=== PATIENT | female | born 1930 | race African-American/Black ===

== ENCOUNTER 2018-01-04 10:53 | Inpatient (IN) | payer MEDICARE, MEDICAID ==
[~2018-01-04] VITALS: Ht 157.5 cm; Wt 45.5 kg
[~2018-01-04 10:53] MED LIST: ARICEPT PO; ASPIRIN EC81 MG PO; BL ADULT ASA81 MG PO; CEPHALEXIN500 M1 PO; CIPROFLOXACN250 MG PO; FLUCONAZOLE100 MG PO; LOVASTATIN10 M1 PO; MEDDOSEPAK PO; MEGESTROL AC20 MG PO; NITRO-DUR0.4 MG/HR TD; NYSTATIN100000 M1 PO; PROTONIX40 MG PO; SERTRALINE25 MG PO; TRAMADOL HCL50 MG PO
--- NOTE | 2018-01-04 11:08 | NUR ---
PT ARRIVED TO ER ROOM 10
--- NOTE | 2018-01-04 11:30 | NUR ---
PT RESTING COMFORTABLY IN STRETCHER, RIGHT LEG IS BENT AT THE KNEE FOR PT COMFORT AND PT UNABLE TO STRAIGHTEN LEG WITHOUT PAIN. PT HAS A HX OF DEMENTIA AND IS UNABLE TO COMMUNICATE PAIN LEVEL AT THIS TIME. PEDAL PULSE STONG IN RIGHT EXTREMITY. PAITENT ALERT TO PERSON AT THIS TIME. UNABLE TO RECONCILE MEDICATIONS DUE TO PT STATUS. CALL MERRITT WITHIN REACH, WILL CONTINUE TO MONITOR.
--- NOTE | 2018-01-04 12:30 | NUR ---
PT REQUESTING PAIN MEDICATION. MD NOTIFIED, AWAITING NEW ORDERS.
--- NOTE | 2018-01-04 13:30 | NUR ---
IV ACCESS OBTAINED. PT GRANDDAUGHTER AT BEDSIDE AND UPDATED ON STATUS AND PLAN OF CARE. WILL CONTINUE TO MONITOR.
--- NOTE | 2018-01-04 14:00 | NUR ---
PT RESTING COMFORTABLY IN STRETCHER, FAMILY AT BEDSIDE. FAMILY UPDATED ON PLAN OF CARE AND WAIT TIME. CALL MERRITT WITHIN REACH, WILL CONTINUE TO MONITOR.
--- NOTE | 2018-01-04 14:45 | NUR ---
MD AT BEDSIDE TO DISCUSS RESUTLS AND PLAN OF CARE.
--- NOTE | 2018-01-04 15:02 | NUR ---
SBAR PRINTED TO FLOOR
--- NOTE | 2018-01-04 15:31 | NUR ---
REPORT CALLED TO DANNY HERRERA.
--- NOTE | 2018-01-04 15:40 | NUR ---
Admission Note Report Given to: DANNY HERRERA Transported by: Wheelchair X Stretcher Transported with: X Nurse Transporter X Patent IV O2 Potable Water Treatment Operator
[2018-01-04 15:56] VITALS: BP 110/69
[2018-01-04 16:13] LABS: HEMATOCRIT 32.8 % (37.0-47.0); IMMATURE GRANULOCYTES 0.6 % (0.0-1.0); MEAN CORPUSCULAR HGB 29.6 pG CALC (26.0-32.0); MEAN CORPUSCULAR HGB CONC 30.5 g/L CALC (32.0-36.0); NEUT# 9.79 thou/uL (2.00-7.15); RED BLOOD COUNT 3.38 mill/uL (4.20-5.60); RED CELL DISTRI WIDTH 14.6 % (11.5-15.5)
--- NOTE | 2018-01-04 18:21 | NUR ---
PER MD ORDER AND USING STERILE TECHNIQUE 16 FR VILLALOBOS INSERTED; IMMEDIATE RETURN OF APPROX 300 ML OF CLOUDY URINE; PT IS CONFUSED AND COMBATIVE, TOOK MULTIPLE STAFF AND FAMILY MEMBERS TO ASSIST WITH INSERTION; FAMILY IN ROOM CALL MERRITT WITHIN REACH; WILL CONTINUE TO MONITOR;
--- NOTE | 2018-01-04 19:20 | NUR ---
PT.IN BED AND SPOKE TO ME AND APPEARED TO BE CALM. DAUGHTER IS AT BEDSIDE. POC DISCUSSED. VILLALOBOS CATHETER DRAINING YELLOW URINE AND LEG STRAP IN PLACE. DENIES ANY OTHER NEEDS AT THIS TIME.
[2018-01-04 19:56] LABS: ALBUMIN 3.2 g/dL (3.2-5.0); BILIRUBIN, TOTAL 0.5 mg/dL (0.0-1.4); CREATININE 1.3 mg/dL (0.5-1.0); POTASSIUM 4.8 mmol/l (3.5-5.1); TOTAL PROTEIN 6.3 g/dL (6.3-8.2)
[2018-01-04 20:22] VITALS: BP 107/65
--- NOTE | 2018-01-04 22:59 | NUR ---
PT.MEDICATED ORDERS PROVIDE, URINE SAMPLE TAKEN. DAUGHTER AND ONE AIDE ASSISTED KEEPING PT.CALM, PT.TOLERATED WELL AND REMAINED CALM THROUGHOUT. DAUGHTER IS AT BEDSIDE. I OFFERED DAUGHTER ROLL-AWAY BED/DECLINED. SHE IS USING THE COUCH AND CHAIR WITH BLANKETS. I ENCOURAGED THE DAUGHTER TO CALL IF ANY NEEDS ARISE
[2018-01-04 23:39] LABS: URINE BILIRUBIN - DIPSTICK NEGATIVE (NEGATIVE); URINE BLOOD DIPSTICK TRACE-INTACT (NEGATIVE); URINE COLOR YELLOW; URINE GLUCOSE - DIPSTICK NEGATIVE (NEGATIVE); URINE KETONE NEGATIVE (NEGATIVE); URINE LEUK ESTERASE MODERATE (Negative); URINE NITRITE - DIPSTICK POSITIVE (Negative); URINE PH 6.5 (4.5-8.0); URINE PROTEIN - DIPSTICK TRACE mg/dL (NEG-TRACE)
[2018-01-04 23:49] LABS: URINE CLARITY CLEAR
[2018-01-04 23:51] LABS: URINE BACTERIA MANY hpf; URINE RBC 0-2 RBC/hpf (0-5); URINE SQUAMOUS EPITHELIAL CELL RARE EPI/hpf (0-FEW); URINE TRANSITIONAL EPI. CELLS FEW hpf; URINE WBC 50-100 WBC/hpf (0-5)
--- NOTE | 2018-01-05 03:35 | NUR ---
PT.MEDICATED FOR PAIN. DAUGHTER AT BEDSIDE ASSISTED, PILL CRUSHED INTO APPLESAUCE, BUT PT.VERY DIFFICULT TO GET TO EAT. I WAS ABLE TO GET PILL DOWN,BUT WILL ASK FOR IV ORDER DUE TO THE DIFFICULTY. PT.KEPT TRYING TO SPIT IT OUT EVEN WITH APPLESAUCE. PT.LEFT IN BED APPEARS TO BE RESTFULL UPON LEAVING ROOM, DAUGHTER AT BEDSIDE.
[2018-01-05 05:55] VITALS: BP 113/64
--- NOTE | 2018-01-05 05:58 | NUR ---
PT.V/S ASSESSED, DAUGHTER AT BEDSIDE, PT.APPEARS TO BE RESTING COMFORTABLY, NO S/S OF DISTRESS
--- NOTE | 2018-01-05 07:00 | NUR ---
SHIFT CHANGE REPORT FROM RICHIE MO AWAKE, ALERT AND DISORIENTED, CONFUSED, IV INFUSING TO SITE IN RFA, NO C/O PAIN AT THIS TIME, FAMILY MEMBER IN ROOM, CALL MERRITT IN REACH.
[2018-01-05 12:59] VITALS: BP 128/67
[2018-01-05 13:20] LABS: CHOLESTEROL HDL RATIO 3.5 (<4.4 (CALC)); MAGNESIUM 2.1 mg/dL (1.6-2.3)
--- NOTE | 2018-01-05 13:45 | NUR ---
PT C/O PAIN TO RIGHT HIP, DR ORTIZ NOTIFIED AND ORDERED ANALGESIC IV, PAIN ISSUE ADDRESSED, FAMILY AT BEDSIDE
--- NOTE | 2018-01-05 14:42 | NUR ---
OR STAFF (VINCE) RECEIVED PT AND TRANSPORTED HER OFF UNIT IN BED.
[2018-01-05 15:09] LABS: HEMATOCRIT 26.8 % (37.0-47.0); HEMOGLOBIN 8.5 g/dl (12.0-16.0); IMMATURE GRANULOCYTES 0.3 % (0.0-1.0); MEAN CELL VOLUME 93.4 fL CALC (80.0-100.0); MEAN CORPUSCULAR HGB 29.6 pG CALC (26.0-32.0); MEAN CORPUSCULAR HGB CONC 31.7 g/L CALC (32.0-36.0); NEUT# 5.83 thou/uL (2.00-7.15); RED BLOOD COUNT 2.87 mill/uL (4.20-5.60); RED CELL DISTRI WIDTH 14.5 % (11.5-15.5)
[2018-01-05 15:36] LABS: ANION GAP 11 (6-22 (CALC)); BUN 19 mg/dL (8-23); BUN/CREATININE RATIO 18 (12-20 (CALC)); CARBON DIOXIDE 23 mmol/l (22-30); CHLORIDE 111 mmol/l (95-108); GFR 52 ML/MIN (>=60 (CALC)); GFR FOR AFR.AMER. > 60 ML/MIN (>=60 (CALC)); POTASSIUM 4.5 mmol/l (3.5-5.1); SODIUM 140 mmol/l (137-146)
--- NOTE | 2018-01-05 18:50 | NUR ---
PT ARRIVED TO FLOOR FROM OR WITH STAFF. RESP EVEN AND UNLABORED WITH O2 IN PLACE. PT WOKE TO SPEECH; PT ALERT TO PERSON. BED ALARM ON FOR SAFETY. ABD SOFT; HYPOACTIVE BOWEL SOUNDS NOTED. PEDAL PULSES PALPATED BILAT. SCD ON LEFT LEG. RIGHT HIP DRESSING SCANT DRAINAGE NOTED; WILL REINFORCE NEEDED. NO S&S OF INFECTION NOTED. PICC JOAO PATENT; NO REDNESS OR EDEMA NOTED. VILLALOBOS PATENT; YELLOW URINE NOTED. PT ENCOURAGED TO CALL FOR ASSISTANCE. VITAL SIGNS OBTAINED PER PROTOCOL FREQUENT ROUNDS MADE. CALL LIGHT WITHIN REACH.
[2018-01-05 18:52] VITALS: BP 133/76
--- NOTE | 2018-01-05 22:08 | NUR ---
RT IN ROOM WITH PT EDUCATIING ON IS USE.
[2018-01-05 23:30] VITALS: BP 138/73
--- NOTE | 2018-01-06 00:10 | NUR ---
PT WOKE TO SPEECH. PT STATES PAIN; WILL MEDICATE PER ORDERS. PT REPOSITIONED FOR COMFORT. RESP EVEN AND UNLABORED WITH O2 IN PLACE. SCANT DRAINAGE NOTED ON DRESSING. PULSES STRONG. CALL LIGHT WITHIN REACH.
--- NOTE | 2018-01-06 04:10 | NUR ---
RESP EVEN AND UNLABORED WITH O2 IN PLACE. ASSESSMENT UNCHANGED. VILLALOBOS PATENT. PICC PATENT; NO REDNESS OR EDEMA NOTED. CALL LIGHT WITHIN REACH.
[2018-01-06 04:50] VITALS: BP 138/72
--- NOTE | 2018-01-06 06:40 | NUR ---
BLOOD DRAW PER PROTOCOL; PICC PATENT
--- NOTE | 2018-01-06 07:00 | NUR ---
SHIFT CHANGE REPORT FROM SAMANTHA, PT AWAKE AND ALERT RESTING IN BED, STATED SHE HAS LITTLE PAIN AT THIS TIME, DRESSING TO RIGHT HIP INTACT WITH SMALL AMOUNT BLOODY DRAINAGE, IVF INFUSING, CALL MERRITT IN REACH.
--- NOTE | 2018-01-06 07:26 | NUR ---
REPORT GIVEN; NURSE AWARE WILFREDO OUT THIS AM POST OP DAY 1. PT RESTING IN SEMI-FOWLERS POSITION. PT DENIES ANY PAIN OR DISCOMFORT. WILFREDO PATENT. BED ALARM IN PLACE FOR SAFETY; CALL LIGHT WITHIN REACH.
[2018-01-06 07:36] LABS: HEMATOCRIT 28.9 % (37.0-47.0)
[2018-01-06 07:49] VITALS: BP 109/56
--- NOTE | 2018-01-06 12:40 | NUR ---
VILLALOBOS CATHETER OUT @ 1105, PT TOLERATED PROCEDURE WELL. RESTING IN BED AT THIS TIME, OFFERED PAIN MED WHICH WAS PLACED IN PUDDING BUT PT IS SMALL PARTICLES FROM THE PUDDING AND SPITTING THEM OUT. SHE HAD MOST OF THE MED BUT UNCLEAR TO DETERMINE HOW MUCH WAS NOT TAKEN. CALL SHAINA IN REACH, FAMILY MEMBER IN ROOM VISITING.
--- NOTE | 2018-01-06 14:11 | NUR ---
SEEN PT WITH FAMILY. ATTEMPTED TO GET PT OOB BUT WOULD NOT LET THERAPIST TOUCH HER R LEG. STATED SHE WANTED TO SIT UP ON EDGE OF BED BY HERSELF. PT WAS UNABLE TO EVEN WITH ASSISTANCE. CONSTANTLY STATING EXTREME PAIN ON R LE. SAID SHE WOULD TRY TO GET UP TOMORROW. LEFT PT WITH FAMILY IN THE ROOM. CALL MERRITT WITHIN REACH.
--- NOTE | 2018-01-06 16:15 | NUR ---
ASSISTED TO BSC WITH MAX ASSIST OF 3 STAFF, URINATED FIRST TIME SINCE REMOVAL OF CATHETER, ASSISTED BACK TO BED, FAMILY MEMBERS ROLLING IN NOW TO VISIT, CALL MERRITT IN REACH.
--- NOTE | 2018-01-06 19:10 | NUR ---
REPORT RECEIVED FROM DANNY ROBLEDO;PT RESTING IN SEMI FOWLERS POSITION WITH VISITOR AT BEDSIDE;POC DISCUSSED AND INTRODUCED SELF TO PT;BED ALARM ON FOR PT SAFETY;CALL LIGHT IN REACH;WILL CONTINUE TO MONITOR
[2018-01-06 19:20] VITALS: BP 110/54
--- NOTE | 2018-01-06 21:50 | NUR ---
PT RESTING IN SEMI FOWLERS POSITION;PT A&O TO PERSON,WILL RE-ORIENT ACCORDINGLY;ASSESSMENT COMPLETED;PT IS POST OP DAY #1 RIGHT HIP ORIF;DRESSING TO HIP REMAINS CDI WITH SCANT AMOUNT OF DRIED SANGUINEOUS FLUID NOTED;CAP REFILL LESS THAN 3 SECONDS;STRONG PEDAL PULSES;RESPIRATIONS EVEN AND UNLABORED ON RA,CLEAR LUNG SOUNDS;SCD TO LEFT FOOT IN PLACE;RIGHT UPPER ARM PICC LINE INFUSING NS @ 100ML/HR WELL,SITE APPEARS HEALTHY;SKIN INTACT;PT DENIES ANY PAIN AT THIS TIME AND IS EDUCATED ON PAIN SCALE AND REPORTING SAFETY PRECAUTIONS IN PLACE WITH BED ALARM ON;COMMODE AT BEDSIDE;CALL LIGHT WITHIN REACH;WILL CONTINUE TO MONITOR
[2018-01-07] VITALS (7 sets, daily range): BP systolic 102–132; BP diastolic 53–74
--- NOTE | 2018-01-07 01:20 | NUR ---
PT AMBULATED WITH 2 PERSON ASSIST TO BEDSIDE COMMODE AND VOIDED 200CC OF CLEAR/YELLOW URINE;PT RE-POSITIONED BACK INTO BED;RESPIRATIONS SHALLOW ON RA;PT COMPLAINS OF RIGHT HIP PAIN RATING 6/10 ON THE PAIN SCALE;MEDICATED PT WITH PERCOCET 10/325MG PO,WILL MONITOR FOR EFFECTIVENESS;IV FLUIDS INFUSING WELL TO RIGHT UPPER ARM PICC LINE;SCD IN PLACE;BED ALARM ON FOR PT SAFETY;CALL LIGHT IN REACH;WILL CONTINUE TO MONITOR
--- NOTE | 2018-01-07 05:20 | NUR ---
PT RESTING IN SEMI FOWLERS POSITION;PT DENIES ANY PAIN OR DISCOMFORTS;RESPIRATIONS EVEN AND UNLABORED ON RA;IV FLUIDS INFUSING WELL TO RIGHT UPPER ARM PICC LINE;BED ALARM REMAINS OF FOR PT SAFETY;CALL LIGHT IN REACH;WILL CONTINUE TO MONITOR
--- NOTE | 2018-01-07 06:30 | NUR ---
PT RESTING IN BED REQUESTING TO USE BEDSIDE COMMODE;PT AMBULATED WITH A WEAK GAIT AND 2 PERSON ASSIST AND VOIDED 200CC OF CLEAR/YELLOW URINE;PT REPOSITIONED BACK INTO BED;SCD PLACED BACK ON PT;RESPIRATIONS EVEN AND UNLABORED ON RA;BED ALARM ON FOR SAFETY;CALL LIGHT IN REACH;WILL CONTINUE TO MONITOR
[2018-01-07 07:09] LABS: HEMATOCRIT 26.4 % (37.0-47.0); HEMOGLOBIN 7.8 g/dl (12.0-16.0); IMMATURE GRANULOCYTES 0.4 % (0.0-1.0); MEAN CELL VOLUME 97.8 fL CALC (80.0-100.0); MEAN CORPUSCULAR HGB 28.9 pG CALC (26.0-32.0); MEAN CORPUSCULAR HGB CONC 29.5 g/L CALC (32.0-36.0); NEUT# 6.07 thou/uL (2.00-7.15); RED BLOOD COUNT 2.7 mill/uL (4.20-5.60); RED CELL DISTRI WIDTH 14.3 % (11.5-15.5)
--- NOTE | 2018-01-07 07:30 | NUR ---
RECEIVED REPORT FROM ROSAURA VIVAR. PT ASSESSMENT COMPLETED. PT ALERT AND ORIENTED TO PERSON BUT HAS SOME CONFUSION. EYES PERRLA. HR NORMAL. RESPIRATIONS EVEN AND UNLABORED ON RA. LUNGS SOUNDS CLEAR. BOWEL SOUNDS HYPOACTIVE IN ALL QUADRANTS. STRONG RADIAL/PEDAL PULSES. DRESSING ON RIGHT HIP WAS SECURE AND INTACT, SHADOWING NOTED THROUGH DRESSING, SURFACE OF DRESSING DRY, NO ACTIVE BLEEDING NOTED. PT WAS TURNED W/ MAX ASSIST OF 2. STAGE 2 PRESSURE ULCER ON COCCYX NOTED MEASURING 1CM X 1CM. BRIGHT RED DRAINAGE TO RIGHT ARM PICC LINE DRESSING, MEENA, RN NOTIFIED OF IV SITE AND PRESSURE ULCER. BED IN LOWEST POSTION, WHEELS LOCKED. CALL LIGHT PLACED WITHIN REACH. PT ENCOURAGED TO CALL FOR HELP.
[2018-01-07 07:32] LABS: ALBUMIN 2.3 g/dL (3.2-5.0); ALKALINE PHOSPHATASE 87 u/l (38-126); ANION GAP 12 (6-22 (CALC)); BILIRUBIN, TOTAL 0.3 mg/dL (0.0-1.4); BUN 15 mg/dL (8-23); BUN/CREATININE RATIO 16 (12-20 (CALC)); CARBON DIOXIDE 19 mmol/l (22-30); CHLORIDE 114 mmol/l (95-108); CREATININE 0.9 mg/dL (0.5-1.0); GFR 59 ML/MIN (>=60 (CALC)); GFR FOR AFR.AMER. > 60 ML/MIN (>=60 (CALC)); POTASSIUM 4.8 mmol/l (3.5-5.1); SGOT/AST 22 u/l (9-36); SGPT/ALT 13 u/l (11-66); SODIUM 140 mmol/l (137-146)
--- NOTE | 2018-01-07 07:43 | NUR ---
SHIFT CHANGE REPORT FROM RICHIE VIVAR SLEEPING COMFORTABLY IN SUPINE POSITION, BREATHING EVEN AND NON-LABORED, IVF INFUSING, CALL MERRITT IN REACH.
--- NOTE | 2018-01-07 10:19 | NUR ---
PT WAS OOB WITH MAX A OF 3. TRANSFERRED FROM BED TO THE BEDSIDE COMMODE WITH MAX A OF 3. PT WAS UNABLE TO WALK AND CONSTANTLY COMPLAINED OF PAIN ON HIPS UPON WEIGHT BEARING. OFFERED MAX OF 3 AGAIN TRANSFERRING FROM BSC TO RECLINER. LEFT PT COMFORTABLY SITTING IN THE RECLINER WITH ELEVATED LEG REST, CALL MERRITT WITHIN REACH. NO ADVERSE RXNS NOTED OR REPORTED AT THE END OF TX.
--- NOTE | 2018-01-07 10:39 | NUR ---
PT IS CONFUSED AND FORGETFUL, DIFFICULT AND TAKES LONG TIME TO HAVE ANY PROCEDURE FROM ADMINISTERING ORAL MEDS TO REPOSITIONING. SHE CONSTANTLY PULLS ON TUBES/LINES ATTATCHED, STAFF ROUND FREQUENTLY. PICC DRESSING SATURATED WITH BLOOD, CXR ORDERED TO CHECK FOR PLACEMENT. PHYSICAL THERAPIST TREATED, IT TOOK 4 STAFF MEMBERS TO TRANSFER FROM BED TO BSC THEN TO RECLINER.
--- NOTE | 2018-01-07 17:27 | NUR ---
Patient seen this PM for functional activity of transfer training, gait belt applied prior to doing so. Sit to stand x1 attempt to RW and with max. assist x2 and 1 more staff member standing by, verbal and tactile cues for UE push off from recliner. After 1-2 minutes pt. requested to sit due to complaints of getting tired. Sit to stand performed again for stand and pivot tranfer with max assist of 2 to sitting at edge of bed. Sit to supine in bed with max assist of 2, 1 person for bringing patients LE's up onto bed and 1 person for upper trunk support. Patient left resting comfortably in bed with nurse and 1 more staff member in room.
--- NOTE | 2018-01-07 17:48 | NUR ---
MIDLINE FOUND BLEEDING WITH CLOTS AROUND SITE @ 0900, DRESSING CHANGED IN STERINE MANNER, FLUSHED WITH 0.9NS AND FLUID LEAKED OUT AND SATURATED NEW DRESSING. X=RAY ORDERED FOR PLACEMENT WHICH SHOWED LINE IN PLACE. CHIDI EVALUATED AND ORDERED NOT TO USE STATING HE WILL HAVE KYMBERLY COME TO EVALUATE IN AM. CHIDI STARTED NEW PERIPHERAL LINE.
--- NOTE | 2018-01-07 19:13 | NUR ---
UNABLE TO INFUSE PRBC DUE TO MALFUNCTIONING IV CATHETER, DR ORTIZ NOTIFIED, NO NEW ORDERS.
--- NOTE | 2018-01-07 19:45 | NUR ---
REPORT RECEIVED FROM DANNY ROBLEDO;PT RESTING IN BED REQUESTING TO USE THE RESTROOM;WITH A 2 PERSON ASSIST PT AMBULATED TO THE BEDSIDE COMMODE WITH A STEADY GAIT AND VOIDED 200CC OF CLEAR/YELLOW URINE;[facility] CARE PROVIDED AND PT RE-POSITIONED BACK INTO BED;SAFETY PRECAUTIONS REINFORCED WITH BED ALARM ON FOR SAFETY;CALL LIGHT IN REACH;WILL CONTINUE TO MONITOR
--- NOTE | 2018-01-07 22:00 | NUR ---
PT APPEARS TO BE SLEEPING IN SUPINE POSITION;RESPIRATIONS EVEN AND UNLABORED ON O2 @ 2L VIA NC;PT ALERT TO SELF ONLY,RE-ORIENTED ACCORDINGLY;ASSESSMENT COMPLETED;CLEAR LUNG SOUNDS;ABDOMEN SOFT WITH ACTIVE BOWELS IN ALL 4 QUADS;PT IS POST OP DAY #2 RT HIP ORIF,DRESSING REMAINS CDI WITH SCANT SHADOWING NOTED;SCD TO LEFT LEG;NEW #20G TO RAC STARTED BY DANNY GARCIA.SITE FLUSHED AND SECURED WITH COBAN;STRONG PEDAL PULSES;CAP REFILL LESS THAN 3 SECONDS;PT VOICES NO COMPLAINTS OF PAIN;PAIN SCALE AND REPORTING EDUCATED;FALL PRECAUTIONS IN PLACE WITH BED ALARM ON FOR SAFETY;CALL LIGHT IN REACH;WILL CONTINUE TO MONITOR
[2018-01-08] VITALS (8 sets, daily range): BP systolic 118–135; BP diastolic 62–73
--- NOTE | 2018-01-08 00:19 | NUR ---
PT RESTING IN SUPINE POSITION;PT AND WRITTER DISCUSSED S/S OF A BLOOD TRANSFUSION ADVERSE REACTION AND TO REPORT TO NURSE IF SYMPTOMS OCCUR;PT VERBALIZES UNDERSTANDING;1ST BAG OF PRBC'S ADMINISTERED AT THIS TIME WITH DANNY GARCIA;WRITTER TO REMAIN AT BEDSIDE FOR THE FIRST 15MINS;PT DENIES ANY NEEDS AT THIS TIME;WILL CONTINUE TO MONITOR CLOSELY
--- NOTE | 2018-01-08 00:35 | NUR ---
IV SITE TO RAC FOUND INFILTRATED,SITE REMOVED WITH CATHETER INTACT;NEW SITE TO BE ESTABLISHED;PT TOLERATING TRANSFUSION WELL;VS OBTAINED;WILL CONTINUE TO MONITOR
--- NOTE | 2018-01-08 01:00 | NUR ---
NEW #22G TO LEFT FOREARM STARTED BY ROXANNE LIMARN
--- NOTE | 2018-01-08 01:28 | NUR ---
VS OBTAINED;PT DENIES ANY PAIN OR NEEDS;RESPIRATIONS REMAIN EVEN AND UNLABORED ON OXYGEN @ 2L VIA NC;#22G TO LEFT FOREARM INFUSING WELL,NO REDNESS OR EDEMA;FALL PRECAUTIONS IN PLACE;WILL CONTINUE TO MONITOR
--- NOTE | 2018-01-08 02:20 | NUR ---
PT APPEARS TO BE SLEEPING IN SUPINE POSITION;WOKE PT TO OBTAIN VS;BP 126/63 HR 82;PRBC'S INFUSING WELL TO LEFT FOREARM,NO REDNESS OR EDEMA AT SITE;PT VOICES NO CONCERNS;RESPIRATIONS EVEN AND UNLABORED;WARM BLAKET PROVIDED;WILL CONTINUE TO MONITOR
--- NOTE | 2018-01-08 03:30 | NUR ---
PT COMPLETED FIRST UNIT OF PRBC'S,TOLERATED WELL;VS OBTAINED AND LASIX 20MG IVP ADMINISTERED PER ORDER;PT COMPLAINS OF RIGT HIP PAIN;MEDICATED WITH PRN PERCOCET 10/325 PO,WILL MONITOR FOR EFFECTIVENESS
--- NOTE | 2018-01-08 04:05 | NUR ---
SECOND UNIT OF PRBC'S ADMINISTERED WITH RADHARN WITNESS;S/S OF BLOOD TRANSFUSION REACTIONS RE-EDUCATED AND PT VERBALIZES UNDERSTANDING;IV SITE PATENT;PT VOICES NO COMPLAINTS OTHER THEN STATING "IM JUST TIRED";WRITTER TO REMAIN AT BEDSIDE FOR INITAL 15 MINS;WILL CONTINUE TO MONITOR
--- NOTE | 2018-01-08 06:30 | NUR ---
SECOND UNIT OF PRBC'S COMPLETED;PT TOLERATED WELL;IV SITE REMAINS PATENT AND NS @ 100ML/HR RESTARTED;PT RECEIVING BED BATH AT THIS TIME;WILL CONTINUE TO MONITOR
--- NOTE | 2018-01-08 08:10 | NUR ---
ASSESSMENT IS COMPLETED: PT IS RELAXING IN BED , IN THE ROOM TO CHECK ON PT. WILL GO TO REHAB TODAY. IV SITE IS FREE FROM REDNESS OR EDEMA. MIDLINE IS IN PLACE NOT WORKING AT THIS TIME. BREATH SOUNDS ARE CLEAR, BILATERALLY. HR IS REG, PULSES ARE STRONG. DRESSING ON R HIP IS CDI.
--- NOTE | 2018-01-08 12:00 | NUR ---
PT IS RELAXING IN THE CHAIR. NO DISTRESS NOTED. IV SITE IS FREE FROM REDNESS OR EDEMA.
[2018-01-08 13:38] LABS: HEMATOCRIT 34.7 % (37.0-47.0); HEMOGLOBIN 11.1 g/dl (12.0-16.0); IMMATURE GRANULOCYTES 0.4 % (0.0-1.0); MEAN CELL VOLUME 92.5 fL CALC (80.0-100.0); MEAN CORPUSCULAR HGB 29.6 pG CALC (26.0-32.0); NEUT# 6.39 thou/uL (2.00-7.15); RED BLOOD COUNT 3.75 mill/uL (4.20-5.60); RED CELL DISTRI WIDTH 13.9 % (11.5-15.5)
--- NOTE | 2018-01-08 14:52 | NUR ---
Patient seen this AM for functional activity, gait belt on prior to. Min. assist x1 for supine to sit. Tactile cues and min. assit x1 for advancing LE's off edge of bed. Patient able to assist with scooting to edge of bed. Sit to stand with max assist x1 and cues for UE push off x2 attempts. Pt. required assistance for guiding RW toward recliner and tactile cues for taking steps. 2-3 steps taken with mod. assist x2 and use of RW. Stand to sit with continual verbal cues and mod. assist x1. LE's elevated, call light reviewed and left within reach. Patient left without questions or concerns. Patient seen this PM again for therapeutic exercises sitting in recliner. Pt. able to perform forward and backward scooting in recliner with insruction. AROM of toes performed, AROM knee extension R and L 3x10 repetitions, and AROM heel and toe raises 3x10 repetitions. Attempted sit to stand two times, however pt. refused to do so. Sitting in recliner call light reviewed and left within reach. Patient left without questions or concerns. Nurse informed.
--- NOTE | 2018-01-08 15:18 | NUR ---
Patient does not feel too good. Pt was informed about current medication and confirmed understanding.
--- NOTE | 2018-01-08 15:31 | NUR ---
IV SITE IN LAC AND RAC HAS BEEN DISCONTINEUD CATHETER INTACT. NO REDNESS OR EDEMA. PT TOELRATED WELL. DISCHARGE INSTRUCTIONS ARE BEING GIVEN TO FAMILY FOR TRAVELING TO [place]. CONTINUE TO OSEBRVE AND MONITOR.
--- NOTE | 2018-01-08 16:05 | NUR ---
PT BEING TRANSFERED TO TO DAUGHTERS VEHICLE FOR DISCHARGE. ALL PAPERS GIVEN TO FAMILY.,
--- NOTE | 2018-01-08 16:30 | NUR ---
Discharge instructions given. Patient verbalizes understanding of same. Discharged in stable condition via Wheelchair to *Other with family. All belongings sent with pt.
== END 2018-01-08 16:00 | DRG 480 ==
LOC: ED 10:53 → EDBD 10:53 → ED 11:44 → ED-I 14:47 → ED 15:05 → MS2 15:06
PROVIDERS: ADMIT Internal Medicine; ATTEND Internal Medicine Geriatric Medicine
PROC: 0T9B70Z Drainage of Bladder with Drainage Device, Via Natural or Artificial Opening (ICD-10-PCS; 2018-01-04)
PROC: 0QS606Z Reposition Right Upper Femur with Intramedullary Internal Fixation Device, Open Approach (ICD-10-PCS; principal; 2018-01-05)
PROC: 05H933Z Insertion of Infusion Device into Right Brachial Vein, Percutaneous Approach (ICD-10-PCS; 2018-01-05)
PROC: B51MZZA Fluoroscopy of Right Upper Extremity Veins, Guidance (ICD-10-PCS; 2018-01-05)
PROC: 30233N1 Transfusion of Nonautologous Red Blood Cells into Peripheral Vein, Percutaneous Approach (ICD-10-PCS; 2018-01-08)
PROC: 30233N1 Transfusion of Nonautologous Red Blood Cells into Peripheral Vein, Percutaneous Approach (ICD-10-PCS; 2018-01-08)
DX: S72.144A Nondisplaced intertrochanteric fracture of right femur, initial encounter for closed fracture (principal); E43 Unspecified severe protein-calorie malnutrition; I11.0 Hypertensive heart disease with heart failure; F03.90 Unspecified dementia, unspecified severity, without behavioral disturbance, psychotic disturbance, mood disturbance, and anxiety; I50.9 Heart failure, unspecified; D62 Acute posthemorrhagic anemia; Z68.1 Body mass index [BMI] 19.9 or less, adult; N39.0 Urinary tract infection, site not specified; E03.9 Hypothyroidism, unspecified; I25.10 Atherosclerotic heart disease of native coronary artery without angina pectoris; K27.9 Peptic ulcer, site unspecified, unspecified as acute or chronic, without hemorrhage or perforation; M19.90 Unspecified osteoarthritis, unspecified site; G89.29 Other chronic pain; M54.5 Low back pain; M85.80 Other specified disorders of bone density and structure, unspecified site; B96.20 Unspecified Escherichia coli [E. coli] as the cause of diseases classified elsewhere; R62.7 Adult failure to thrive; W01.0XXA Fall on same level from slipping, tripping and stumbling without subsequent striking against object, initial encounter; Y92.009 Unspecified place in unspecified non-institutional (private) residence as the place of occurrence of the external cause
CPT/HCPCS: P9016

== ENCOUNTER 2018-04-16 12:07 | Emergency (ER) | payer MEDICARE, MEDICAID ==
[~2018-04-16] VITALS: Ht 157.5 cm; Wt 46.4 kg
[2018-04-16 13:02] LABS: HEMOGLOBIN 12.9 g/dl (12.0-16.0); IMMATURE GRANULOCYTES 0.5 % (0.0-1.0); MEAN CELL VOLUME 90.6 fL CALC (80.0-100.0); MEAN CORPUSCULAR HGB 28.7 pG CALC (26.0-32.0); MEAN CORPUSCULAR HGB CONC 31.7 g/L CALC (32.0-36.0); NEUT# 10.47 thou/uL (2.00-7.15); RED BLOOD COUNT 4.49 mill/uL (4.20-5.60); RED CELL DISTRI WIDTH 12.9 % (11.5-15.5)
[2018-04-16 13:15] LABS: HEMATOCRIT 40.7 % (37.0-47.0)
[2018-04-16 13:33] LABS: INTERNATIONAL NORMALIZED RATIO 1.1 RATIO (0.7-1.3); PROTHROMBIN TIME 11.9 SECONDS (9.0-12.5)
[2018-04-16 13:35] LABS: ALBUMIN 3.5 g/dL (3.2-5.0); ALKALINE PHOSPHATASE 128 u/l (38-126); ANION GAP 21 (6-22 (CALC)); BILIRUBIN, TOTAL 0.8 mg/dL (0.0-1.4); BUN 22 mg/dL (8-23); BUN/CREATININE RATIO 24 (12-20 (CALC)); CARBON DIOXIDE 21 mmol/l (22-30); CHLORIDE 105 mmol/l (95-108); CREATININE 0.9 mg/dL (0.5-1.0); GFR 59 ML/MIN (>=60 (CALC)); GFR FOR AFR.AMER. > 60 ML/MIN (>=60 (CALC)); POTASSIUM 4.2 mmol/l (3.5-5.1); SGOT/AST 22 u/l (9-36); SGPT/ALT 23 u/l (11-66); SODIUM 143 mmol/l (137-146); TOTAL PROTEIN 7.4 g/dL (6.3-8.2)
[2018-04-16 13:47] LABS: MYOGLOBIN 148 ng/mL (0 - 62)
[2018-04-16 15:47] LABS: URINE BLOOD DIPSTICK MODERATE (NEGATIVE); URINE COLOR YELLOW; URINE GLUCOSE - DIPSTICK NEGATIVE (NEGATIVE); URINE KETONE 15 mg/dL (NEGATIVE); URINE LEUK ESTERASE TRACE (NEGATIVE); URINE NITRITE - DIPSTICK NEGATIVE (Negative); URINE PH 5.5 (4.5-8.0); URINE PROTEIN - DIPSTICK TRACE mg/dL (NEG-TRACE); URINE SPECIFIC GRAVITY >=1.030; URINE UROBILINOGEN - DIPSTICK 0.2 E.U./dL (0.2)
[2018-04-16 15:49] LABS: URINE BILIRUBIN - DIPSTICK NEGATIVE (NEGATIVE); URINE CLARITY SL CLOUDY
[2018-04-16 16:00] LABS: URINE SQUAMOUS EPITHELIAL CELL MODERATE EPI/hpf (0-FEW)
[2018-04-16 16:01] LABS: URINE AMORPH SEDIMENT MODERATE hpf (NONE-FEW)
[2018-04-16 19:26] VITALS: BP 136/83
== END 2018-04-16 19:26 | disposition short-term general hospital (02) ==
LOC: ED 12:07
PROVIDERS: Emergency Medicine
DX: I21.4 Non-ST elevation (NSTEMI) myocardial infarction (principal); M25.551 Pain in right hip; F03.90 Unspecified dementia, unspecified severity, without behavioral disturbance, psychotic disturbance, mood disturbance, and anxiety; I25.10 Atherosclerotic heart disease of native coronary artery without angina pectoris; I10 Essential (primary) hypertension; R62.7 Adult failure to thrive; F41.9 Anxiety disorder, unspecified
CPT/HCPCS: J1650; J2060